=== PATIENT | male | born 1935 | race American Indian/Alaskan Native ===

== ENCOUNTER 2021-02-27 11:45 | Outpatient (CLI) | payer MEDICARE, OTHER ==
--- NOTE | 2021-02-27 13:25 | XRay Report ---
BONE SURVEY METASTATIC INDICATION: MULTIPLE MYELOMA STAGE 1. COMPARISON: None. IMPRESSION: Multiple radiographs of the axial and proximal appendicular skeleton were obtained. No areas of abnormal bony production or destruction are identified on x-ray. Mild diffuse degenerative c hanges are noted throughout the spine. No acute osseous injury is appreciated. Signer Name: Beni Saleem Jr, MD Signed: 02/27/2021 1:21 PM Workstation Name: [id number]
== END 2021-02-27 11:46 | disposition home or self-care (01) ==
LOC: SPVIMAG 11:45
PROVIDERS: ATTEND Internal Medicine Hematology & Oncology
DX: C90.00 Multiple myeloma not having achieved remission (principal)
CPT/HCPCS: 77074

== ENCOUNTER 2021-08-02 10:59 | Outpatient (CLI) | payer MEDICARE, OTHER ==
--- NOTE | 2021-08-02 13:04 | Mammography Report ---
BILATERAL DIGITAL DIAGNOSTIC MAMMOGRAM WITH CAD CONVENTIONAL, 08/02/2021 LEFT LIMITED BREAST ULTRASOUND CLINICAL INFORMATION / INDICATION: Patient presents for evaluation of an area of palpable concern in the subareolar left breast. TECHNIQUE: Digital bilateral mammographic imaging was performed. Limited ultrasound was performed. Th is examination was interpreted with the benefit of Computer-Aided Detection (CAD) analysis. COMPARISON: None FINDINGS: Breast Density: There are scattered areas of fibroglandular density. MAMMOGRAPHIC FINDINGS: No dominant mass, suspicious calcifications, or architectural distortion in ei ther breast. There is a small to moderate amount of asymmetric fibroglandular tissue seen at the site of palpable concern in the subareolar left breast, with the mammographic appearance most suggestive of asymmetric gynecomastia. Targeted ultrasound was performed for further evaluation. ULTRASOUND FINDINGS: Targeted ultrasound evaluation was performed of the area of interest. Targeted ultrasound of the area of palpable concern in the subareolar left breast reveals a small amount of n odular hypoechoic tissue in the 6:00 subareolar position measuring up to approximately 1.4 cm. This i s most compatible with benign gynecomastia as seen mammographically. IMPRESSION: 1. Asymmetric fibroglandular tissue in the subareolar left breast accounts for the area of palpable c oncern and most likely reflects asymmetric gynecomastia, though clinical correlation is recommended. Follow up recommendation: Clinical exam BI-RADS Category 2: BENIGN. A "normal" or negative report should not discourage follow up or biopsy of a clinically significant f inding. A written summary of these findings will be mailed to the patient. The patient will be entered into a mammography reporting system which will generate a reminder letter for the patient's next appointmen t at the appropriate interval. According to the [employer], yearly mammograms are recommended starting at age 40 and continuing as long as a woman is in good health. Breast MRI is recommended for women with an francine roximately 20-25% or greater lifetime risk of breast cancer, including women with a strong family his tory of breast or ovarian cancer and women who have been treated for Hodgkin's disease. Signer Name: Mar Alvarez MD Signed: 08/02/2021 1:00 PM Workstation Name: [id number]
== END 2021-08-02 11:00 | disposition home or self-care (01) ==
LOC: US 10:59
PROVIDERS: ATTEND Internal Medicine Hematology & Oncology
DX: N63.42 Unspecified lump in left breast, subareolar (principal)
CPT/HCPCS: 77066